=== PATIENT | male | born 2000 | race Caucasian/White ===

== ENCOUNTER 2021-09-13 15:39 | Observation (INO) ==
[2021-09-13] MEDS ORDERED: Lactated Ringers 1000 ml BAG 1,000 ML IV ONE ×2 (15:52→16:56)
[2021-09-13] MEDS ORDERED: Adenosine 3 MG/ML 2 ml VIAL (6 mg) IV PUSH ONE ×2 (15:53→15:57)
[2021-09-13 16:37] LABS: ABS Eosinophils 0.1 10^3/ul (0-0.6); ABS Lymphocytes 3.1 10^3/ul (1.0-4.8); ABS Monocytes 0.8 10^3/ul (0-0.8); ABS Neutrophils 4.8 10^3/ul (1.5-7.7); Eosinophil % 1.1 %; Hematocrit 45 % (42-52); Hemoglobin 15.9 g/dL (14.0-18.0); Lymphocyte % 34.9 %; Mean Corpuscular HGB Conc 35 g/dL (31-36); Mean Corpuscular Hemoglobin 31 pg (27-31); Mean Corpuscular Volume 89 fL (80-94); Platelet Count 298 10^3/uL (150-450); Red Blood Count 5.07 10^6 /uL (4.18-5.48); Red Cell Distribution Width 13 % (10-15); White Blood Count 8.9 10^3/uL (3.5-10.8)
[2021-09-13] MEDS ORDERED: Metoprolol Tartrate 5 mg VIAL 5 ml VIAL (1 mg/ml) IV ONE (16:45)
[2021-09-13 16:49] LABS: Troponin I 0.01 ng/mL (<0.03)
[2021-09-13 16:52] LABS: INR 1.2 (0.86-1.15)
[2021-09-13 17:10] LABS: ALT 12 U/L (7-52); Albumin 4.7 g/dL (3.2-5.2); Albumin/Globulin Ratio 1.4 (1-3); Alkaline Phosphatase 70 U/L (35-149); Blood Urea Nitrogen 14 mg/dL (6-24); C Reactive Protein < 1.00 mg/L (<8.01); CO2 Carbon Dioxide 28 mmol/L (22-32); Chloride 103 mmol/L (101-111); Globulin 3.4 g/dL (2-4); Glucose 91 mg/dL (70-100); Sodium 140 mmol/L (135-145); Total Protein 8.1 g/dL (6.4-8.9)
[2021-09-13 17:16] LABS: TSH Ultra Thyroid Stim Horm 1.83 mcIU/mL (0.34-5.60)
[2021-09-13 17:27] LABS: Activated Partial Thrombo Time 36.5 seconds (26.0-38.0)
[2021-09-13] MEDS ORDERED: Diltiazem IV BAG D5W Premix 125 MG/125 ML BAG IV SCH (18:00)
[2021-09-13 18:20] LABS: AST 16 U/L (13-39); Anion Gap 9 mmol/L (2-11)
[2021-09-13 18:42] LABS: Magnesium 2.4 mg/dL (1.9-2.7)
[2021-09-13] MEDS: Enoxaparin 80 MG/0.8 ML SYR SUBCUT SCH (18:54)
[2021-09-13] MEDS ORDERED: Ondansetron 4 mg VIAL 2 MG/ML 2 ml VIAL IV PRN (18:55)
[2021-09-13 19:24] LABS: Urine Benzodiazepine Screen None Detected (None Detect); Urine Cannabinoids Screen None Detected (None Detect); Urine Opiates Screen None Detected (None Detect)
[2021-09-13 21:50] LABS: Rapid COVID-19 Molecular Undetected (Undetected)
[2021-09-14] MEDS ORDERED: Diltiazem IV BAG D5W Premix 125 MG/125 ML BAG IV SCH (05:49)
[2021-09-14] MEDS: Enoxaparin 80 MG/0.8 ML SYR SUBCUT SCH (06:55)
[2021-09-14 16:31] VITALS: BP 112/76
== END 2021-09-14 15:45 | disposition home or self-care (01) ==
LOC: MEDTELE 15:39 → ED 15:39
PROVIDERS: ADMIT Hospitalist; ATTEND Hospitalist